=== PATIENT | male | born 1995 | race Caucasian/White ===

== ENCOUNTER 2017-01-27 00:09 | Emergency (ER) | payer OTHER ==
[~2017-01-27] VITALS: Ht 193 cm; Wt 81.6 kg
[2017-01-27 00:11] VITALS: BP_SYST 108
[2017-01-27] MEDS ORDERED: NACL 0.9% 1,000 ML IV ONE (00:30)
[2017-01-27 00:45] VITALS: BP_SYST 112
[2017-01-27 01:12] LABS: BARBITURATE, URINE NEGATIVE (NEG <=200); BENZODIAZEPINE, URINE NEGATIVE (NEG <=150); METHAMPHETAMINES SCREEN,URINE NEGATIVE (NEG <=500); URINE AMPHETAMINE NEGATIVE (NEG <=500); URINE METHADONE NEGATIVE (NEG <=200)
[2017-01-27 01:13] LABS: CANNABINOID, URINE POSITIVE (NEG <=50); COCAINE, URINE NEGATIVE (NEG <=150); OPIATE, URINE NEGATIVE (NEG <=100); PHENCYCLIDINE SCREEN,URINE NEGATIVE (NEG <=25); UR TRICYCLIC ANTIDEPRESSANTS NEGATIVE (NEG <=300); URINE OXYCODONE SCREEN NEGATIVE (NEG <=100); URINE PROPOXYPHENE SCREEN NEGATIVE (NEG <=300)
== END 2017-01-27 00:45 | disposition home or self-care (01) ==
LOC: SED 00:09
DX: Z00.00 Encounter for general adult medical examination without abnormal findings (principal); M62.838 Other muscle spasm
CPT/HCPCS: 80307; 93005; 99285; J7030

== ENCOUNTER → 2019-04-10 | Emergency (ER) | payer BC, OTHER ==
[~2019-04-10] VITALS: Ht 195.6 cm; Wt 81.6 kg
[~2019-04-10] MED LIST: ACTIVATED CHARCOAL 50 GM ORAL.SUSP PO ONE; NACL 0.9% 1,000 ML IV ONE
[2019-04-10 16:35] VITALS: BP_SYST 129
--- NOTE | 2019-04-10 16:43 | NUR ---
Patient triaged and placed in waiting room. VSS and patient appears in no acute distress at this time. Accompanied by mother, awaiting available bed, and MD notified of need for MSE.
--- NOTE | 2019-04-10 16:47 | NUR ---
Patient to ER bed 06 to gown for evaluation. Side rails up.
--- NOTE | 2019-04-10 17:00 | NUR ---
RANDI Gonzalez at bedside examining patient.
--- NOTE | 2019-04-10 17:02 | NUR ---
Trell chandler/ Edel from poison control . Stated that cap measures are not found in [facility]. Recommended 50gm of activated charcoal w/out Sorbital. Further stated that if cap measures are consumed GI symptoms will begain within 6-8hrs. Recommends observing the pt for 8hrs and to check liver fx test. Dr. Khan informed
--- NOTE | 2019-04-10 17:15 | NUR ---
pt is refusing to have labs drawn and IVF. Stated that he only needs charcoal. Advised the pt of what the necessary treatment is. Pt is refusing to sign AMA and to leave the room.
[2019-04-10 17:48] LABS: BASOPHILS # (AUTO) 0.1 K/uL (0.0-0.2); BASOPHILS % (AUTO) 0.7 % (0.0-2.0); HEMATOCRIT 39.1 % (36-54); LYMPHOCYTES # (AUTO) 1.2 K/uL (1.0-5.5); LYMPHOCYTES % (AUTO) 10.9 % (20.5-51.5); MEAN CORPUSCULAR HEMOGLOBIN 28 pg (27-31); MEAN CORPUSCULAR HGB CONC 33 % (32-36); MEAN CORPUSCULAR VOLUME 84 fL (79.0-98.0); MONOCYTES # (AUTO) 0.7 K/uL (0.0-1.0); MONOCYTES % (AUTO) 6.2 % (1.7-9.3); NEUTROPHILS # (AUTO) 9.2 K/uL (1.8-7.7); NEUTROPHILS % (AUTO) 82.2 % (40.0-70.0); PLATELET COUNT (AUTO) 236 K/uL (130-430); RED BLOOD CELL COUNT(AUTO) 4.65 MIL/uL (4.2-6.2); WHITE BLOOD COUNT (AUTO) 11.2 K/uL (4.8-10.8)
--- NOTE | 2019-04-10 18:18 | NUR ---
pt is refusing to be admitted and to have an IV inserted
--- NOTE | 2019-04-10 18:20 | NUR ---
pt and his mother became verbally abusive towards staff. Security called
--- NOTE | 2019-04-10 18:23 | NUR ---
pt left AMA w/out signing the form.
[2019-04-10 18:27] VITALS: BP_SYST 129
[2019-04-10 19:18] LABS: ANION GAP 10 (5-15); CALCIUM 9.3 mg/dL (8.4-11.0); CHLORIDE 102 mmol/L (98-107); CREATININE 0.88 mg/dL (0.55-1.30); GLUCOSE 93 mg/dL (70-99); POTASSIUM 3.8 mmol/L (3.5-5.1); SODIUM SERUM 139 mmol/L (136-145); UREA NITROGEN, BLOOD 8 mg/dL (8-21)
[2019-04-10 19:19] LABS: GFR AFRICAN AMERICAN 141 mL/min (>90)
[2019-04-10 19:23] LABS: ALANINE AMINOTRANSFERASE 27 U/L (12-78); ALBUMIN 4.1 g/dL (3.4-4.8); ALCOHOL, BLOOD 3 mg/dL (<10); ASPARTATE AMINOTRANSFERASE 29 U/L (10-37); TOTAL BILIRUBIN 0.8 mg/dL (0.0-1.0)
[2019-04-10 19:24] LABS: ACETAMINOPHEN < 1 ug/mL (1-30)
== END | disposition left against medical advice (07) ==
LOC: SED 16:30
DX: Z02.89 Encounter for other administrative examinations (principal); F17.210 Nicotine dependence, cigarettes, uncomplicated
CPT/HCPCS: 36415; 80053; 85025; 99283; G0480; G0481; G0482